=== PATIENT | female | born 1945 | race Two or more races ===

== ENCOUNTER 2021-07-13 19:35 | Inpatient (IN) | payer MEDICARE, OTHER ==
[~2021-07-13] VITALS: Ht 157.5 cm; Wt 70.0 kg
[2021-07-13 20:44] LABS: Basophils # (auto) 0.1 10 ^3/uL (0-0.2); Basophils % (auto) 0.9 % (0.0-2.0); Eosinophils # (auto) 0.2 10 ^3/uL (0-0.8); Eosinophils % (auto) 2.7 % (0.0-7.0); Hematocrit 34.4 % (36.0-46.0); Hemoglobin 11.9 g/dL (12.2-16.2); Lymphocytes # (auto) 2.2 10 ^3/uL (0.4-5.4); Mean Corpuscular Hemoglobin 30.8 pg (28.0-32.0); Mean Corpuscular Hgb Conc. 34.7 g/dL (32.0-36.0); Mean Corpuscular Volume 88.7 fL (80.0-100.0); Monocytes # (auto) 0.9 10 ^3/uL (0-1.3); Monocytes % (auto) 12.7 % (0.0-12.0); Neutrophils # (auto) 3.8 10 ^3/uL (1.6-8.6); Neutrophils % (auto) 52.7 % (37.0-80.0); Nucleated Red Blood Cells % 0.2 %; Red Blood Cells 3.88 10^6/uL (4.0-5.20); Red Cell Distribution Width 15.6 % (11.8-14.3); White Blood Cell 7.1 10^3/uL (4.4-10.8)
[2021-07-13 21:01] LABS: Albumin 3.3 g/dL (3.4-5.0); Calcium 8.2 mg/dL (8.5-10.1); Potassium 4.4 mmol/L (3.5-5.1)
[2021-07-13 21:04] LABS: BUN/Creatinine Ratio 14.6; Bilirubin, Total 0.4 mg/dL (0.2-1.0); Total Protein 7.4 g/dL (6.4-8.2)
[2021-07-13 22:10] LABS: Urine Bacteria MOD /hpf (None Seen); Urine Blood Negative /uL (Negative); Urine Specific Gravity 1.008 (1.001-1.035); Urine WBC 7 /hpf (0 - 5)
[2021-07-13 22:27] LABS: Amphetamine Screen, Urine NEGATIVE (NEGATIVE); Barbiturate Scree,Urine NEGATIVE (NEGATIVE); Benzodiazephine Screen, Urine NEGATIVE (NEGATIVE); Cannabinoid Screen, Urine NEGATIVE (NEGATIVE); Cocaine Screen, Urine NEGATIVE (NEGATIVE); Opiate Scree,Urine NEGATIVE (NEGATIVE); Phencyclidine Screen, Urine NEGATIVE (NEGATIVE)
[2021-07-13] MEDS ORDERED: ACETAMINOPHEN 325 MG TAB PO PRN (22:45)
[2021-07-13] MEDS ORDERED: MORPHINE SULFATE INJECTION 2 MG/2 ML SYRG IV PRN (22:45)
[2021-07-13] MEDS ORDERED: NITROGLYCERIN 0.4 MG SL TAB SL PRN (22:45)
[2021-07-13] MEDS ORDERED: HYDROcodone-ACET 5/325MG TAB PO PRN (22:45)
[2021-07-13] MEDS ORDERED: DOCUSATE SOD 100 MG CAP PO PRN (22:45)
[2021-07-13] MEDS ORDERED: ONDANSETRON HCL 4 MG/2 ML VIAL IV PRN (22:45)
[2021-07-14] MEDS: SODIUM CHLOR 0.9% PF (SALINE LOCK) 10ML VIAL/SYR IV SCH ×3 (06:10→22:11)
[2021-07-14 06:57] LABS: Basophils # (auto) 0.1 10 ^3/uL (0-0.2); Eosinophils # (auto) 0.1 10 ^3/uL (0-0.8); Eosinophils % (auto) 2.6 % (0.0-7.0); Hematocrit 33.5 % (36.0-46.0); Hemoglobin 11.6 g/dL (12.2-16.2); Lymphocytes # (auto) 1.8 10 ^3/uL (0.4-5.4); Lymphocytes % (auto) 32.9 % (10.0-50.0); Mean Corpuscular Hemoglobin 30.8 pg (28.0-32.0); Mean Corpuscular Hgb Conc. 34.8 g/dL (32.0-36.0); Mean Corpuscular Volume 88.6 fL (80.0-100.0); Monocytes # (auto) 0.8 10 ^3/uL (0-1.3); Monocytes % (auto) 14.1 % (0.0-12.0); Neutrophils # (auto) 2.7 10 ^3/uL (1.6-8.6); Neutrophils % (auto) 49.4 % (37.0-80.0); Nucleated Red Blood Cells % 0.1 %; Red Blood Cells 3.78 10^6/uL (4.0-5.20); Red Cell Distribution Width 15.2 % (11.8-14.3); White Blood Cell 5.4 10^3/uL (4.4-10.8)
[2021-07-14 07:14] LABS: Albumin 3.1 g/dL (3.4-5.0); Calcium 8.3 mg/dL (8.5-10.1)
[2021-07-14 07:18] LABS: BUN/Creatinine Ratio 16.7; Bilirubin, Total 0.3 mg/dL (0.2-1.0); Total Protein 6.8 g/dL (6.4-8.2)
[2021-07-14] MEDS ORDERED: ALENDRONATE SODIUM 10 MG TAB PO SCH (07:30)
[2021-07-14] MEDS ORDERED: POTASSIUM CHL 20 Meq TABLET PO ONE (07:30)
[2021-07-14] MEDS ORDERED: SODIUM CHLORIDE 1 GM TAB PO ONE (07:30)
[2021-07-14] MEDS: SODIUM CHLORIDE 0.9% 1,000 ML IV SCH (07:49)
[2021-07-14] MEDS: ENOXAPARIN SOD 40 MG/0.4 ML SYRINGE SC SCH ×2 (07:54→22:11)
[2021-07-14] MEDS: FAMOTIDINE 20 MG TAB PO SCH (07:55)
[2021-07-14] MEDS: ASCORBIC ACID 500 MG TAB PO SCH ×2 (07:55→22:11)
[2021-07-14] MEDS: ZINC SULFATE 220mg CAP or TAB PO SCH (07:55)
[2021-07-14] MEDS: cefTRIAXone 1GM/50ML D5W 50 ML IV SCH (07:55)
[2021-07-14] MEDS: MULTIPLE VITAMIN TAB PO SCH (07:55)
[2021-07-14] MEDS ORDERED: ENOXAPARIN SOD 40 MG/0.4 ML SYRINGE SC SCH (10:00)
[2021-07-14] MEDS ORDERED: LORazepam 2MG/ML-1ML VIAL IV PRN (18:00)
[2021-07-15] MEDS: SODIUM CHLORIDE 0.9% 1,000 ML IV SCH ×2 (00:12→16:09)
[2021-07-15] MEDS ORDERED: FAMOTIDINE (10MG/ML) 2ML VL IV ONE (02:00)
[2021-07-15 02:40] VITALS: BP 147/57
[2021-07-15] MEDS: SODIUM CHLOR 0.9% PF (SALINE LOCK) 10ML VIAL/SYR IV SCH ×3 (06:00→21:01)
[2021-07-15 08:04] LABS: Basophils # (auto) 0.1 10 ^3/uL (0-0.2); Basophils % (auto) 0.9 % (0.0-2.0); Eosinophils # (auto) 0.2 10 ^3/uL (0-0.8); Eosinophils % (auto) 3.2 % (0.0-7.0); Hematocrit 34.7 % (36.0-46.0); Hemoglobin 11.8 g/dL (12.2-16.2); Lymphocytes # (auto) 2.2 10 ^3/uL (0.4-5.4); Lymphocytes % (auto) 31.7 % (10.0-50.0); Mean Corpuscular Hemoglobin 30.5 pg (28.0-32.0); Mean Corpuscular Hgb Conc. 34.1 g/dL (32.0-36.0); Mean Corpuscular Volume 89.5 fL (80.0-100.0); Monocytes # (auto) 0.8 10 ^3/uL (0-1.3); Monocytes % (auto) 10.9 % (0.0-12.0); Neutrophils # (auto) 3.7 10 ^3/uL (1.6-8.6); Neutrophils % (auto) 53.3 % (37.0-80.0); Nucleated Red Blood Cells % 0.2 %; Red Blood Cells 3.87 10^6/uL (4.0-5.20); Red Cell Distribution Width 15.6 % (11.8-14.3)
[2021-07-15] MEDS ORDERED: ALEN70TA74 PO (08:05)
[2021-07-15] MEDS ORDERED: OLAN1TAB7 PO (08:05)
[2021-07-15] MEDS ORDERED: ANAS1TAB7 PO (08:05)
[2021-07-15] MEDS ORDERED: METO25TA93 PO (08:05)
[2021-07-15] MEDS ORDERED: LANS30CA57 PO (08:05)
[2021-07-15] MEDS ORDERED: ONDA-180 (08:05)
[2021-07-15] MEDS ORDERED: AMLO-489 PO (08:05)
[2021-07-15] MEDS ORDERED: ASPI-543 PO (08:05)
[2021-07-15] MEDS ORDERED: FLUO-126 PO (08:05)
[2021-07-15] MEDS ORDERED: LOVA40TA72 PO (08:05)
[2021-07-15] MEDS ORDERED: ACET-1156 PO (08:05)
[2021-07-15 08:25] LABS: BUN/Creatinine Ratio 14.7; Calcium 8.5 mg/dL (8.5-10.1); Potassium 4.9 mmol/L (3.5-5.1)
[2021-07-15 09:00] VITALS: BP 155/70
[2021-07-15] MEDS: cefTRIAXone 1GM/50ML D5W 50 ML IV SCH (09:06)
[2021-07-15] MEDS: ZINC SULFATE 220mg CAP or TAB PO SCH (09:06)
[2021-07-15] MEDS: ASCORBIC ACID 500 MG TAB PO SCH ×2 (09:07→21:01)
[2021-07-15] MEDS: ENOXAPARIN SOD 40 MG/0.4 ML SYRINGE SC SCH ×2 (09:07→21:01)
[2021-07-15] MEDS: MULTIPLE VITAMIN TAB PO SCH (09:07)
[2021-07-15] MEDS: FAMOTIDINE 20 MG TAB PO SCH (09:07)
[2021-07-15 13:00] VITALS: BP 125/88
[2021-07-15 16:58] LABS: BUN/Creatinine Ratio 12.2; Calcium 8.3 mg/dL (8.5-10.1); Potassium 4.3 mmol/L (3.5-5.1)
[2021-07-15 17:00] VITALS: BP 117/62
[2021-07-15 22:00] VITALS: BP 161/87
[2021-07-16] VITALS: BP 154/78
[2021-07-16 05:00] VITALS: BP 132/50
[2021-07-16] MEDS: SODIUM CHLOR 0.9% PF (SALINE LOCK) 10ML VIAL/SYR IV SCH ×2 (05:57→14:00)
[2021-07-16 09:00] VITALS: BP 146/74
[2021-07-16] MEDS: MULTIPLE VITAMIN TAB PO SCH (09:09)
[2021-07-16] MEDS: cefTRIAXone 1GM/50ML D5W 50 ML IV SCH (09:09)
[2021-07-16] MEDS: FAMOTIDINE 20 MG TAB PO SCH (09:14)
[2021-07-16] MEDS: ZINC SULFATE 220mg CAP or TAB PO SCH (09:14)
[2021-07-16] MEDS: ENOXAPARIN SOD 40 MG/0.4 ML SYRINGE SC SCH (09:14)
[2021-07-16] MEDS: SODIUM CHLORIDE 0.9% 1,000 ML IV SCH (09:18)
[2021-07-16] MEDS ORDERED: ASPirin-EC 81 mg tab PO SCH (10:00)
[2021-07-16 10:05] LABS: Calcium 8.3 mg/dL (8.5-10.1); Potassium 3.8 mmol/L (3.5-5.1)
[2021-07-16] MEDS: ASCORBIC ACID 500 MG TAB PO SCH (10:05)
[2021-07-16 13:00] VITALS: BP 150/69
[2021-07-16 17:00] VITALS: BP 139/75
[2021-07-17] MEDS ORDERED: ENOXAPARIN SOD 40 MG/0.4 ML SYRINGE SC SCH (10:00)
== END 2021-07-16 19:30 | disposition home or self-care (01) | DRG 640 ==
LOC: EDBD 19:35 → ER 19:38 → OVERFLOW 22:38 → WEST WING 07-15 02:42
PROVIDERS: ADMIT Nurse Practitioner Family; ATTEND Family Medicine
DX: E87.1 Hypo-osmolality and hyponatremia (principal); G93.41 Metabolic encephalopathy; N39.0 Urinary tract infection, site not specified; N17.9 Acute kidney failure, unspecified; R47.01 Aphasia; Z16.23 Resistance to quinolones and fluoroquinolones; H57.02 Anisocoria; F41.9 Anxiety disorder, unspecified; I10 Essential (primary) hypertension; E78.5 Hyperlipidemia, unspecified; Z20.822 Contact with and (suspected) exposure to COVID-19; B96.20 Unspecified Escherichia coli [E. coli] as the cause of diseases classified elsewhere; F17.200 Nicotine dependence, unspecified, uncomplicated; Z80.3 Family history of malignant neoplasm of breast; Z82.49 Family history of ischemic heart disease and other diseases of the circulatory system; Z85.3 Personal history of malignant neoplasm of breast
CPT/HCPCS: 36415; 70450; 70547; 70551; 71045; 71250; 80048; 80053; 80061; 80307; 81001; 83605; 83930; 83935; 84300; 85025; 87040; 87086; 87088; 87186; 87426; 93005; 93306; 93886; 95819; 96361; 96365; 96366; 96372; 96375; G0378; J0696; J2405; J3490